=== PATIENT | female | born 1990 | race Caucasian/White ===

== ENCOUNTER 2016-06-24 16:10 | Emergency (ER) ==
[2016-06-24 17:51] LABS: URINE CULTURE PL NEEDED? NO; URINE SOURCE CLEAN CATCH
[2016-06-24 17:53] LABS: BILIRUBIN URINE NEGATIVE (NEGATIVE); BLOOD URINE NEGATIVE (NEGATIVE); CLARITY VERY CLOUDY (CLEAR); COLOR YELLOW; GLUCOSE URINE NEGATIVE (NEGATIVE); LEUKOCYTES URINE NEGATIVE (NEGATIVE); NITRITE URINE NEGATIVE (NEGATIVE); PROTEIN URINE NEGATIVE (NEGATIVE); UROBILINOGEN URINE NORMAL
[2016-06-24 18:04] LABS: URINE CAST NONE SEEN /LPF; URINE CRYSTAL NONE SEEN /HPF; URINE EPITHELIAL CELLS <10 /HPF (<10)
--- NOTE | 2016-06-24 18:37 | PROVIDER DOCUMENTATION ---
HPI-Female /OB/Breast - General Source: reports: patient <Maria C Man - Last Filed: 06/24/16 19:51> <Toño Ferro - Last Filed: 06/24/16 20:54> - General Chief Complaint: Female Stated Complaint: 11 WEEKS PREG/ABD PX Time Seen by Provider: 06/24/16 17:57 Allergies/Adverse Reactions: Patient Allergies Allergy/AdvReac Type Severity Reaction Status Date / Time Penicillins Allergy Unknown SWELLING Verified 01/29/14 17:06 Home Medications: Home Medication List Medication Instructions Recorded Confirmed Last Taken Type [id number]/Iron Fumarate/FA/Dss 1 tab PO DAILY 06/18/14 06/18/14 Unknown History [ 19 Tablet] Hydrocodone/APAP 5 mg/325 mg 1 each PO Q6H PRN PRN #15 tablet 02/02/15 Unknown Rx [Placedo-5] Ibuprofen [Motrin] 800 mg PO Q8H PRN PRN #30 tablet 02/02/15 Unknown Rx Sertraline [Zoloft] 100 mg PO QAM #30 tablet 02/02/15 Unknown Rx - History of Present Illness-Female /OB Nature of Presenting Problem: 25 y/o WF c/o umbilical abd. pain x 1 day. Pt states that she is female and has had only initial intake with OB. States that she has not had any N/V/D/ C, fever/chills, urinary sxs, vaginal bleeding; LBM was today. States that she has not had an US with her OB yet- has an appt for it on 04 July 2016. (Maria C Man) Review of Systems - Adult - REVIEW OF SYSTEMS - ADULT Constitutional: reports: no symptoms reported. denies: chills, fever Eyes: reports: no symptoms reported. denies: blurred vision, double vision Ears, Nose, Mouth & Throat: reports: no symptoms reported. denies: ear pain, nose pain Cardiovascular: reports: no symptoms reported. denies: chest pain, palpitations Respiratory: reports: no symptoms reported. denies: cough, shortness of breath Gastrointestinal: reports: see HPI, abdominal pain. denies: hematemesis, diarrhea, nausea, vomiting Genitourinary: reports: no symptoms reported. denies: dysuria, frequency Musculoskeletal: reports: no symptoms reported. denies: joint pain, joint swelling Integumentary: reports: no symptoms reported. denies: nail changes, rash Neurological: reports: no symptoms reported. denies: numbness, paresthesia Psychiatric: reports: no symptoms reported Endocrine: reports: no symptoms reported. denies: cold intolerance, heat intolerance Hematologic/Lymphatic: reports: no symptoms reported. denies: easy bruising, prolonged bleeding Allergic/Immunologic: reports: no symptoms reported All Other Systems: Reviewed and Negative <Maria C Man - Last Filed: 06/24/16 19:51> Past History - Adult - PAST MEDICAL HISTORY-ADULT Review of Records: reports: Nursing Assessment Review, Medications Reviewed Major Childhood Illnesses: reports: denies history Cardiovascular: reports: denies history Respiratory: reports: denies history Gastrointestinal: reports: denies history Obstetrical/Gynecological: reports: denies history Genitourinary: reports: denies history Musculoskeletal: reports: denies history Neurological: reports: denies history Endocrine/Immune: reports: denies history Other Conditions: reports: denies history - PRIOR SURGERIES/PROCEDURES Surgical/Procedure History: reports: other (D & C) - PRIOR HOSPITALIZATIONS Prior Hospitalizations: reports: none - IMMUNIZATION STATUS Childhood Immunizations: UTD Flu Vaccine: See Nurse Assessment - FAMILY HISTORY Family History: reviewed, not pertinent - SOCIAL HISTORY Smoking: cigarettes, less than 1 pack/day Provider spent 3-5 mins advising pt. on dangers of tobacco.: Discussed manners to quit use, and f/u contacts for add'l counseling. Alcohol Use Frequency: never <Maria C Man - Last Filed: 06/24/16 19:51> Physical Exam-General - PHYSICAL EXAM-ADULT Initial Vital Signs Reviewed: Yes - CONSTITUTIONAL General Appearance: alert, mild distress - EYES Eyes: pink conjunctivae - HEAD, EARS, NOSE, MOUTH & THROAT HENMT: normocephalic/atraumatic, moist mucous membranes - NECK Neck: supple, normal inspection - RESPIRATORY Respiratory: lungs clear, normal breath sounds. negative: crackles, rales, rhonchi, stridor, wheezing - CARDIOVASCULAR Cardiovascular: regular rate, rhythm. negative: bradycardia, tachycardia - GASTROINTESTINAL (ABDOMEN) Abdominal Exam: normal bowel sounds, soft, tenderness (umbilicus, LLQ). negative: distended, guarding, rigid, rebound, McBurney's point tenderness, Choi's sign - MUSCULOSKELETAL Back Exam: normal inspection Extremity: normal gait - SKIN Integumentary: normal color, normal turgor, warm/dry - NEUROLOGIC Neurologic: negative: aphasia - PSYCHIATRIC Psych/Mental Status: normal mood/affect, normal thought content, normal thought process, oriented x 3 <Maria C Man - Last Filed: 06/24/16 19:51> Progress - CHANGE OF SHIFT REPORT (ED Provider) Report Given and Care Transferred to:: Christopher Ferro Time of Transfer: 19:51 Items Pending: Ultrasound Results <Maria C Man - Last Filed: 06/24/16 19:51> - ULTRASOUND (By Radiology) 1 US Study: Pelvic US Results: GB contracted; FHR 171; otherwise nad <Toño Ferro - Last Filed: 06/24/16 20:54> - PLAN OF CARE/RESULTS Progress/Plan/Lab Results: Laboratory Tests 06/24/16 06/24/16 06/24/16 16:22 17:33 18:16 WBC RBC Hgb Hct MCV MCH MCHC RDW Std Deviation Plt Count MPV Immature Gran % (Auto) Neut % (Auto) Lymph % (Auto) Rogers % (Auto) Eos % (Auto) Baso % (Auto) Immature Gran # (Auto) Neut # (Auto) Lymph # (Auto) Rogers # (Auto) Eos # (Auto) Baso # (Auto) Sodium Potassium Chloride Carbon Dioxide Anion Gap BUN Creatinine Estimated GFR/1.73 m2 BUN/Creatinine Ratio Glucose Calculated Osmolality Calcium Total Bilirubin AST ALT Alkaline Phosphatase Total Protein Albumin Globulin Albumin/Globulin Ratio Lipase Ser , Semi-Qnt 175291.0 Urine Source CLEAN CATCH Urine Color YELLOW Urine Clarity VERY CLOUDY A Urine pH 7.0 Ur Specific [place] 1.010 Urine Protein NEGATIVE Urine Ketones NEGATIVE Urine Blood NEGATIVE Urine Nitrite NEGATIVE Urine Bilirubin NEGATIVE Urine Urobilinogen NORMAL Urine Microscopic RBC Not Reportable Urine WBC NEGATIVE Ur Epithelial Cells <10 Urine Crystals NONE SEEN Urine Bacteria 1+ Urine Casts NONE SEEN Urine Yeast NONE SEEN Urine Glucose NEGATIVE Urine Test POSITIVE ABO/Rh Screen RhIG Candidate? 06/24/16 06/24/16 06/24/16 18:16 18:30 18:30 WBC 13.32 H RBC 4.40 Hgb 12.6 Hct 37.7 MCV 85.7 MCH 28.6 MCHC 33.4 RDW Std Deviation 12.8 Plt Count 192 MPV 9.8 Immature Gran % (Auto) 0.2 Neut % (Auto) 72.0 Lymph % (Auto) 20.7 Rogers % (Auto) 5.8 Eos % (Auto) 1.1 Baso % (Auto) 0.2 Immature Gran # (Auto) 0.02 Neut # (Auto) 9.60 H Lymph # (Auto) 2.76 Rogers # (Auto) 0.77 H Eos # (Auto) 0.15 Baso # (Auto) 0.02 Sodium 137 Potassium 4.0 Chloride 100 Carbon Dioxide 25 Anion Gap 12 BUN 6 L Creatinine 0.6 Estimated GFR/1.73 m2 > 60 BUN/Creatinine Ratio 10 Glucose 91 Calculated Osmolality 271 Calcium 9.7 Total Bilirubin < 0.15 L AST 13 ALT 7 L Alkaline Phosphatase 73 Total Protein 6.8 Albumin 4.2 Globulin 3.0 Albumin/Globulin Ratio 2.0 Lipase 39 Ser , Semi-Qnt Urine Source Urine Color Urine Clarity Urine pH Ur Specific [place] Urine Protein Urine Ketones Urine Blood Urine Nitrite Urine Bilirubin Urine Urobilinogen Urine Microscopic RBC Urine WBC Ur Epithelial Cells Urine Crystals Urine Bacteria Urine Casts Urine Yeast Urine Glucose Urine Test ABO/Rh A NEGATIVE Screen NEGATIVE RhIG Candidate? YES Orders Category Date Time Status US ABDOMEN-COMPLETE [US] Stat Exams 06/24/16 19:31 Taken CBC WITH DIFF [HEME] Stat Lab 06/24/16 18:30 Completed COMPREHENSIVE METABOLIC PANEL [CHEM] Stat Lab 06/24/16 18:30 Completed BLEED SCREEN [BBK] Stat Lab 06/24/16 18:16 Completed LIPASE [CHEM] Stat Lab 06/24/16 18:30 Completed TEST-URINE [PREG] Stat Lab 06/24/16 18:16 Completed QUANT TEST Stat Lab 06/24/16 17:33 Completed RHOGAM WORKUP [BBK] Stat Lab 06/24/16 18:[address] W/POSS RFLX CULT [URINALYSIS] Stat Lab 06/24/16 16:22 Completed Vital Signs Temp Pulse Resp BP Pulse Ox 06/24/16 17:02 98.8 F 74 18 109/63 100 Penicillins Allergy (Unknown, Verified 01/29/14 17:06) SWELLING BUT UNSURE, MOTHER TOLD HER Ckn833/Iron Fumarate/FA/Dss [ 19 Tablet] 1 tab PO DAILY 06/18/14 Hydrocodone/APAP 5 mg/325 mg [Placedo-5] 1 each PO Q6H PRN PRN #15 tablet Ibuprofen [Motrin] 800 mg PO Q8H PRN PRN #30 tablet 02/02/15 Sertraline [Zoloft] 100 mg PO QAM #30 tablet 02/02/15 Laboratory 06/24/16 06/24/16 06/24/16 18:30 18:30 18:16 WBC 13.32 H RBC 4.40 Hgb 12.6 Hct 37.7 MCV 85.7 MCH 28.6 MCHC 33.4 RDW Std Deviation 12.8 Plt Count 192 MPV 9.8 Immature Gran % (Auto) 0.2 Neut % (Auto) 72.0 Lymph % (Auto) 20.7 Rogers % (Auto) 5.8 Eos % (Auto) 1.1 Baso % (Auto) 0.2 Immature Gran # (Auto) 0.02 Neut # (Auto) 9.60 H Lymph # (Auto) 2.76 Rogers # (Auto) 0.77 H Eos # (Auto) 0.15 Baso # (Auto) 0.02 Sodium 137 Potassium 4.0 Chloride 100 Carbon Dioxide 25 Anion Gap 12 BUN 6 L Creatinine 0.6 Estimated GFR/1.73 m2 > 60 BUN/Creatinine Ratio 10 Glucose 91 Calculated Osmolality 271 Calcium 9.7 Total Bilirubin < 0.15 L AST 13 ALT 7 L Alkaline Phosphatase 73 Total Protein 6.8 Albumin 4.2 Globulin 3.0 Albumin/Globulin Ratio 2.0 Lipase 39 Ser , Semi-Qnt Urine Source Urine Color Urine Clarity Urine pH Ur Specific [place] Urine Protein Urine Ketones Urine Blood Urine Nitrite Urine Bilirubin Urine Urobilinogen Urine Microscopic RBC Urine WBC Ur Epithelial Cells Urine Crystals Urine Bacteria Urine Casts Urine Yeast Urine Glucose Urine Test ABO/Rh A NEGATIVE Screen NEGATIVE RhIG Candidate? YES 06/24/16 06/24/16 06/24/16 18:16 17:33 16:22 WBC RBC Hgb Hct MCV MCH MCHC RDW Std Deviation Plt Count MPV Immature Gran % (Auto) Neut % (Auto) Lymph % (Auto) Rogers % (Auto) Eos % (Auto) Baso % (Auto) Immature Gran # (Auto) Neut # (Auto) Lymph # (Auto) Rogers # (Auto) Eos # (Auto) Baso # (Auto) Sodium Potassium Chloride Carbon Dioxide Anion Gap BUN Creatinine Estimated GFR/1.73 m2 BUN/Creatinine Ratio Glucose Calculated Osmolality Calcium Total Bilirubin AST ALT Alkaline Phosphatase Total Protein Albumin Globulin Albumin/Globulin Ratio Lipase Ser , Semi-Qnt 550142.0 Urine Source CLEAN CATCH Urine Color YELLOW Urine Clarity VERY CLOUDY A Urine pH 7.0 Ur Specific [place] 1.010 Urine Protein NEGATIVE Urine Ketones NEGATIVE Urine Blood NEGATIVE Urine Nitrite NEGATIVE Urine Bilirubin NEGATIVE Urine Urobilinogen NORMAL Urine Microscopic RBC Not Reportable Urine WBC NEGATIVE Ur Epithelial Cells <10 Urine Crystals NONE SEEN Urine Bacteria 1+ Urine Casts NONE SEEN Urine Yeast NONE SEEN Urine Glucose NEGATIVE Urine Test POSITIVE ABO/Rh Screen RhIG Candidate? Pt did mention possibly having some gas pains. Will have her f/u c MAILHOUSE OPERATOR this week rather than wait for her scheduled appointment. She is to return to the ER for any new or worsening symptoms. She is in agreement c this plan. (Toño Ferro) Departure <Maria C Man - Last Filed: 06/24/16 19:51> - Departure Time of Disposition Order: 20:53 Certified Medical Emergency: Emergent <Toño Ferro - Last Filed: 06/24/16 20:54> - Departure DIAGNOSIS: Abdominal pain affecting Disposition: HOME 01 Condition: Good Additional Instructions: Take tylenol for pain. Follow up with an MAILHOUSE OPERATOR this week. Return to the ER for any new or worsening symptoms. Referrals: Castro Christianson MD [Primary Care Provider] - Maurice Haynes MD [STAFF PHYSICIAN] - Attestation - Physician/ VILLA Attestation Patient care was provided by Advanced Practice Provider:: Yes Advanced Practice Provider:: Maria C Man Advanced Practice Provider documentation review:: The Mid-level provider documentation, treatment plan and medical decision making was reviewed by the physician who agrees with all treatment and medical decision making by the ML. <Maria C Man - Last Filed: 06/24/16 19:51> - Physician/ VILLA Attestation Patient care was provided by Advanced Practice Provider:: Yes Advanced Practice Provider:: Toño Ferro Advanced Practice Provider documentation review:: The Mid-level provider documentation, treatment plan and medical decision making was reviewed by the physician who agrees with all treatment and medical decision making by the MLP. <Toño Ferro - Last Filed: 06/24/16 20:54> Physician Attestation
[2016-06-24 18:52] LABS: MANUAL DIFF NEEDED? NO
[2016-06-24 19:08] LABS: BASO% 0.2 % (0.0-0.8); EOS# 0.15 X1000 (0.0-0.7); EOS% 1.1 % (0.0-10.0); HEMATOCRIT 37.7 % (37.0-47.0); HEMOGLOBIN 12.6 g/dL (12.0-16.0); IMM GRAN# 0.02 X1000 (0.0-0.04); IMM GRAN% 0.2 % (0.0-0.5); LYMPH# 2.76 X1000 (1.2-3.4); LYMPH% 20.7 % (20.5-51.1); MCH 28.6 PG (27-31); MCHC 33.4 g/dL (33-37); MCV 85.7 FL (81-99); MONO# 0.77 X1000 (0.11-0.59); MONO% 5.8 % (1.7-9.3); MPV 9.8 FL (7.4-10.4); PLT 192 X1000 (130-400)
[2016-06-24 19:19] LABS: AGAP 12; ALBUMIN 4.2 g/dL (3.5-5.0); ALKALINE PHOSPHATASE 73 U/L (32-104); BUN 6 mg/dL (8-22); CALCIUM 9.7 mg/dL (8.8-10.2); CHLORIDE 100 mmol/L (98-107); COSMO 271; GOT 13 U/L (10-30); GPT 7 U/L (10-36); LIPASE 39 U/L (13-60); SODIUM 137 mmol/L (136-145); TCO2 25 mmol/L (25-35); TOTAL BILIRUBIN < 0.15 mg/dL (0.20-1.00); TOTAL PROTEIN 6.8 g/dL (6.3-8.3)
[2016-06-24 21:01] VITALS: BP 103/66
--- NOTE | 2016-06-24 22:25 | Diag Imaging Result Document ---
PROCEDURE NAME: US ABDOMEN-COMPLETE - 06/24/2016 ABDOMINAL ULTRASOUND: Normal pancreas. No aortic aneurysm. Normal inferior vena cava. No focal or diffuse hepatic abnormality. Normal right kidney. No hydronephrosis. The common bile duct measures 5 mm. The gallbladder is contracted. No stones. Normal left kidney. No hydronephrosis. Normal spleen. No ascites. IMPRESSION: Normal abdominal ultrasound. A preliminary report was given at 8:30 p.m.
== END 2016-06-24 21:00 | disposition home or self-care (01) ==
LOC: P.ED 16:10
DX: O26.891 Other specified pregnancy related conditions, first trimester (principal); Z3A.11 11 weeks gestation of pregnancy; R10.33 Periumbilical pain; R10.32 Left lower quadrant pain; O99.331 Smoking (tobacco) complicating pregnancy, first trimester; F17.210 Nicotine dependence, cigarettes, uncomplicated; Z71.6 Tobacco abuse counseling; Z79.899 Other long term (current) drug therapy
CPT/HCPCS: 76700; 80053; 81001; 81025; 83690; 84702; 85025; 85461; 86900; 86901